=== PATIENT | male | born 1970 | race Two or more races ===

== ENCOUNTER 2022-05-27 09:50 | Emergency (ER) | payer MEDICAID ==
[~2022-05-27] VITALS: Ht 175.3 cm; Wt 104.3 kg
[~2022-05-27 09:50] MED LIST: PENI500T PO
[2022-05-27 10:10] VITALS: BP_SYST 129
--- NOTE | 2022-05-27 10:14 | NUR ---
Patient to ER bed [facility] [address] to [facility] for evaluation. Side rails up. Report given to CHAYO LUBIN.
--- NOTE | 2022-05-27 10:15 | NUR ---
ER Dr. QUAN at bedside examining patient.
--- NOTE | 2022-05-27 10:25 | NUR ---
Pt bib self from home. CC spider bite to index finger of right hand. pt notes sensation of slight pain radiates to right arm. Bump is bright pink with open callous formation. Pt notes took a needle to drain wound, wound bled no drainage noted. Pt notes using neosporin to treat wound. pt denies body pain, fever and is sitting bedside NAD resp. even and unlabored.
[2022-05-27] MEDS ORDERED: LIDOCAINE 1% 10 MG/ML, 20 ML MDV SUBCUT ONE (12:15)
[2022-05-27] MEDS ORDERED: IBUP-1969 PO (12:28)
[2022-05-27] MEDS ORDERED: CEPH-548 PO (12:28)
--- NOTE | 2022-05-27 13:42 | NUR ---
Patient given written and verbal discharge instructions and verbalizes understanding. ER MD discussed with patient the results and treatment provided. Patient in stable condition. ID arm band removed. Patient educated on pain management and to follow up with PMD. Opportunity for questions provided and answered. Medication side effect fact sheet provided.
[2022-05-27 13:43] VITALS: BP_SYST 129
== END 2022-05-27 13:42 | disposition home or self-care (01) ==
LOC: SED 09:50
DX: L02.511 Cutaneous abscess of right hand (principal); L03.011 Cellulitis of right finger; J45.909 Unspecified asthma, uncomplicated; Z79.899 Other long term (current) drug therapy
CPT/HCPCS: 99282